=== PATIENT | female | born 1945 | race Hispanic/Latino ===

== ENCOUNTER 2022-03-05 06:22 | Observation (INO) | payer OTHER ==
[2022-02-27 11:12] LABS: CREATININE 0.7 mg/dL (0.5-1.5); POTASSIUM 4.3 mmol/L (3.5-5.1)
[2022-03-04 16:05] VITALS: BP 126/60
[2022-03-05] VITALS (25 sets, daily range): BP systolic 107–167; BP diastolic 54–79
[~2022-03-05] VITALS: Ht 147.3 cm; Wt 59.1 kg
[~2022-03-05 06:22] MED LIST: BUPIVACAINE/PF 0.5% 30ML VIAL ONE; CEFAZOLIN SODIUM 2 GM VIAL IVPB SCH; CHOL200013 PO; LACTATED RINGERS 1000ML 1,000 ML IV SCH; LATA7.5D OU; LORA10TA7 PO; SIMV40TA59 PO; TIMO1DRO5 OU; TRANEXAMIC ACID 1000MG/10ML IJ SCH; TRANEXAMIC ACID 1000MG/10ML ONE
[2022-03-05] MEDS ORDERED: CEFAZOLIN SODIUM 1 GM VIAL ONE (06:54)
[2022-03-05] MEDS ORDERED: GLYCOPYRROLATE 1 MG/5 ML SYRINGE ONE ×2 (08:47→11:49)
[2022-03-05] MEDS ORDERED: LIDOCAINE PF 100MG/5ML (2%) SYRINGE 5ML ONE (08:47)
[2022-03-05] MEDS ORDERED: SUCCINYLCHOLINE CHLORIDE 20 MG/ML 10 ML VIAL ONE (08:47)
[2022-03-05] MEDS ORDERED: PROPOFOL 10 MG/ML 20ML VIAL IV ONE (08:48)
[2022-03-05] MEDS ORDERED: FENTANYL CITRATE PF 50 MCG/1 ML 2ML VIAL ONE (08:48)
[2022-03-05] MEDS ORDERED: NEOSTIGMINE 5MG/5ML SYR IV ONE (08:48)
[2022-03-05] MEDS ORDERED: ROCURONIUM 10MG/1ML SYR 10 MG/ML ML ONE (08:48)
[2022-03-05] MEDS ORDERED: ATROPINE 1MG SYG IVP ONE (09:38)
[2022-03-05] MEDS ORDERED: PHENYLEPHRINE HCL 10 MG/ML 1ML VIAL IV ONE (10:14)
[2022-03-05] MEDS ORDERED: MEPERIDINE-PF 25 MG/ML SYG ONE ×2 (11:01→12:00)
[2022-03-05] MEDS ORDERED: HYDROCODONE/ACETAMINOPHEN 5/325 MG TAB PO PRN (11:30)
[2022-03-05] MEDS ORDERED: HYDROCODONE/ACETAMINOPHEN 10/325 MG TAB PO PRN (11:30)
[2022-03-05] MEDS ORDERED: MORPHINE 4 MG SYG IVP PRN (11:30)
[2022-03-05] MEDS ORDERED: LIDOCAINE HCL-MPF 1% 2ML VIAL IV PRN (11:30)
[2022-03-05] MEDS ORDERED: ONDANSETRON 4MG INJ IVP PRN (11:30)
[2022-03-05] MEDS ORDERED: POTASSIUM CHLORIDE 20MEQ/100ML 100 ML IV PRN (11:30)
[2022-03-05] MEDS ORDERED: KCL 20 MEQ ERTAB PO PRN (11:30)
[2022-03-05] MEDS ORDERED: POTASSIUM CHLORIDE 10% ELIXIR 20 MEQ/15 ML UDCUP PO PRN (11:30)
[2022-03-05] MEDS: ACETAMINOPHEN 1,000 MG/100 ML VIAL IV SCH ×2 (11:48→17:39)
[2022-03-05] MEDS ORDERED: KETOROLAC 15MG/ML VIAL (15MG/ML) ONE (12:00)
[2022-03-05] MEDS: IBUPROFEN 800MG + NS 250ML IV SCH ×2 (14:45→22:12)
[2022-03-05] MEDS: 0.9%NACL 1000ML 1,000 ML IV SCH ×2 (14:46→21:30)
[2022-03-05] MEDS: CEFAZOLIN SODIUM 2 GM VIAL IVP SCH (17:39)
[2022-03-05] MEDS: TIMOLOL MALEATE 0.5% 5 ML BOTTLE OU SCH (19:54)
[2022-03-05] MEDS: FAMOTIDINE 20MG TAB PO SCH (20:34)
[2022-03-05] MEDS ORDERED: LATANOPROST 2.5 ML DROPS OU SCH (21:00)
[2022-03-06] MEDS: CEFAZOLIN SODIUM 2 GM VIAL IVP SCH (00:38)
[2022-03-06 04:00] VITALS: BP 119/52
[2022-03-06 05:28] LABS: HEMATOCRIT 31.6 % (36-48); MEAN CORPUSCULAR HEMOGLOBIN 30.1 pg (27.0-33.0); MEAN CORPUSCULAR HGB CONC 32.3 g/dL (32.0-36.0); MEAN CORPUSCULAR VOLUME 93.2 fL (79-99); RED BLOOD CELL COUNT(AUTO) 3.39 MIL/uL (4.00-5.50); RED CELL DISTRIBUTION WIDTH 13.6 % (11.0-15.5); WHITE BLOOD COUNT (AUTO) 7.5 K/uL (4.8-10.8)
[2022-03-06 05:30] LABS: CREATININE 0.8 mg/dL (0.5-1.5); POTASSIUM 3.6 mmol/L (3.5-5.1)
[2022-03-06] MEDS: 0.9%NACL 1000ML 1,000 ML IV SCH (06:37)
[2022-03-06 07:00] VITALS: BP 127/61
[2022-03-06] MEDS: FAMOTIDINE 20MG TAB PO SCH (08:34)
[2022-03-06] MEDS: TIMOLOL MALEATE 0.5% 5 ML BOTTLE OU SCH (08:42)
[2022-03-06] MEDS ORDERED: POLYETHYLENE GLYCOL 3350 17 GM POWD.PACK PO SCH (09:00)
[2022-03-06] MEDS ORDERED: ENOXAPARIN SODIUM 30 MG/0.3 ML SQ SCH (09:00)
[2022-03-06 11:00] VITALS: BP 103/43
[2022-03-06 15:00] VITALS: BP 150/65
[2022-03-08] MEDS ORDERED: BISACODYL 10 MG SUPP.RECT RC PRN (11:30)
== END 2022-03-06 18:05 | disposition home or self-care (01) ==
LOC: DAH 06:22 → DAHIP 06:23 → 4CH 12:40
PROVIDERS: ADMIT Orthopaedic Surgery; ATTEND Orthopaedic Surgery
DX: M16.11 Unilateral primary osteoarthritis, right hip (principal); Z20.822 Contact with and (suspected) exposure to COVID-19; Z79.899 Other long term (current) drug therapy
CPT/HCPCS: 80048 ×2; 87426; 36415 ×2; 93005; 87641; 27130; 96365; 96366 ×2; 96375 ×2; 73503; 96376; 96372; 85027; 97161; 97039 ×2; 97116 ×2; 97530; A6260; C1776 ×5; G0378 ×29; A4663; A4606; A4649 ×6; J7120; J3010; J0690 ×3; J3490 ×4; J2710; J0330; J2001; J0461; J2704; J2405; J2175 ×2; J1885; J2370; J1741; A6219; G0168; A5120; A4215; A4223; A4222; A4221; J1650; 96367